=== PATIENT | male | born 1930 | race Caucasian/White ===

== ENCOUNTER → 2017-07-13 | Outpatient (CLI) | payer MEDICARE | END | disposition home or self-care (01) | LOC: PCVCCLINIC 14:02 | PROVIDERS: ATTEND Internal Medicine Cardiovascular Disease | DX: I45.10 Unspecified right bundle-branch block (principal); I12.9 Hypertensive chronic kidney disease with stage 1 through stage 4 chronic kidney disease, or unspecified chronic kidney disease; N18.4 Chronic kidney disease, stage 4 (severe); E78.00 Pure hypercholesterolemia, unspecified; K21.9 Gastro-esophageal reflux disease without esophagitis; G47.33 Obstructive sleep apnea (adult) (pediatric); I77.810 Thoracic aortic ectasia; R94.31 Abnormal electrocardiogram [ECG] [EKG]; J44.9 Chronic obstructive pulmonary disease, unspecified; I73.9 Peripheral vascular disease, unspecified; Z82.49 Family history of ischemic heart disease and other diseases of the circulatory system; Z79.82 Long term (current) use of aspirin; Z87.891 Personal history of nicotine dependence; Z88.2 Allergy status to sulfonamides | CPT/HCPCS: 93005; G0463 ==

== ENCOUNTER → 2017-08-08 | Outpatient (CLI) | payer MEDICARE ==
[~2017-08-08] MED LIST: REGADENOSON 0.4 MG/5 ML DISP.SYRIN. IV ONE
--- NOTE | 2017-08-08 13:28 | PCVCIMAG ---
APPROVED REPORT Exam: Nuclear Stress Test Indication: Abnormal EKG, CAD , Pre-Operative CV evaluation Patient Location: Out-Patient Stress Nurse: Wilma Torres RN, Grecia Wren RN [place] Tech:FELIPE HunterMT Ht: 5 ft 3 in Wt: 229 lbs BSA: 2.05 m2 HR: 83 bpm BP: 136/63 mmHg BMI: 40.5 Rhythm: SR Medical History Medical History: HTN, Hyperlipidemia, PVD, AGE, Former Smoker Medications: Allopurinol, ASA, Advair, Odell, Losartan, Namenda, Protonix, Tamsulosin, Chlorthalidone Allergies: Sulfa Pretest Chest Pain Characteristics: No chest pain Exercise History: Sedentary Physical Disabilities: Back NM EXAM: Myocardial Perfusion REST/STRESS Imaging Protocol: Rest Tc-99m/Stress Tc-99m 1 day Resting Data Rest SPECT myocardial perfusion imaging was performed in supine position 45 minutes following the intravenous injection of 15.7 mCi of Tc-99m Sestamibi. Time of rest injection: 08 Date: 08/08/2017 Administration Route: IV Administration Site: Right Hand Pharmacologic Stress Pharmacologic stress test was performed by injecting Regadenoson 0.4 mg IV push followed by the intravenous injection of 45 mCi of Tc-99m Sestamibi. Time of stress injection: 1010 Date: 08/08/2017 Administration Route: IV Administration Site: Right Hand Gated Stress SPECT was performed 45 minutes after stress injection. The images were gated to evaluate regional wall motion and calculate left ventricular ejection fraction. Study Quality Study: Good Study Data Post stress, the left ventricular ejection was 56%.. SSS: 4 SRS: 5 SDS: 0 TID = 1.04. Perfusion No evidence of stress induced ischemia or prior myocardial infarction. Wall Motion Normal left ventricular size and function with no regional wall motion abnormalities. Nuclear Conclusion No evidence of stress induced ischemia or prior myocardial infarction. Normal left ventricular size and function with no regional wall motion abnormalities. Post stress, the left ventricular ejection was 56%.. No prior study available for comparison. Interpreted by: Mejia Curry MD Electronically Approved: 08/08/2017 13:00:48 Stress Test Details Stress Test: Pharmacologic stress testing performed using 0.4 mg of regadenoson per 5 mL given IV over 10 seconds. Reason for pharmacologic stress test: physical limitation. HR Resting HR: 8 bpmMax Heart Rate (APMHR): 133 bpm Max HR Achieved: 85 bpmTarget HR (85% APMHR): 113 bpm % of APMHR: 63 Recovery HR: 88 bpm BP Resting BP: 136/63 mmHg Max BP: 135/67 mmHg ECG Resting ECG: Sinus Rhythm, RBBB, PACs Stress ECG: Sinus Rhythm, RBBB, PACs ST Change: None, Horizontal ST depression, Upsloping ST depression, Downsloping ST depression, ST Elevation, Nondiagnostic low heart rate, Nondiagnostic resting ST abnormalities, Nondiagnostic V-pacing or LBBB, Normal, Mildly positive, Moderately positive, Strongly positive, Ischemic, Non-ischemic, Eqivocally ischemic, Anterior, Inferior, Lateral Recovery ECG: Sinus Rhythm, RBBB, PACs Clinical Reason for Termination: Completed protocol Stress Symptoms: None Exercise duration: 0 min 55 sec Exercise capacity: 1.0 METs Stress ECG Conclusion ECG: Non-ischemic <Conclusion> ECG: Non-ischemic
== END | disposition home or self-care (01) ==
LOC: PCVCIMAG 07:54
PROVIDERS: ATTEND Internal Medicine Cardiovascular Disease
DX: Z01.810 Encounter for preprocedural cardiovascular examination (principal); I45.10 Unspecified right bundle-branch block; I49.1 Atrial premature depolarization; I25.10 Atherosclerotic heart disease of native coronary artery without angina pectoris; I12.9 Hypertensive chronic kidney disease with stage 1 through stage 4 chronic kidney disease, or unspecified chronic kidney disease; N18.4 Chronic kidney disease, stage 4 (severe); K21.9 Gastro-esophageal reflux disease without esophagitis; R94.31 Abnormal electrocardiogram [ECG] [EKG]; E78.00 Pure hypercholesterolemia, unspecified; I73.9 Peripheral vascular disease, unspecified; K52.9 Noninfective gastroenteritis and colitis, unspecified; Z79.82 Long term (current) use of aspirin; Z79.899 Other long term (current) drug therapy; Z87.891 Personal history of nicotine dependence; Z88.2 Allergy status to sulfonamides; Z82.49 Family history of ischemic heart disease and other diseases of the circulatory system
CPT/HCPCS: 78452; 93017; A9500; J2785

== ENCOUNTER → 2018-01-11 | Outpatient (CLI) | payer MEDICARE | END | disposition home or self-care (01) | LOC: PCVCCLINIC 10:50 | DX: I25.10 Atherosclerotic heart disease of native coronary artery without angina pectoris (principal); I77.810 Thoracic aortic ectasia; I73.9 Peripheral vascular disease, unspecified; G47.33 Obstructive sleep apnea (adult) (pediatric); N18.9 Chronic kidney disease, unspecified; J44.9 Chronic obstructive pulmonary disease, unspecified; R94.31 Abnormal electrocardiogram [ECG] [EKG]; Z87.891 Personal history of nicotine dependence; Z79.82 Long term (current) use of aspirin; Z79.899 Other long term (current) drug therapy | CPT/HCPCS: 80061; 93005; G0463 ==

== ENCOUNTER → 2018-07-26 | Outpatient (CLI) | payer MEDICARE | END | disposition home or self-care (01) | LOC: PCVCCLINIC 13:36 | PROVIDERS: ATTEND Internal Medicine Cardiovascular Disease | DX: I77.810 Thoracic aortic ectasia (principal); R94.31 Abnormal electrocardiogram [ECG] [EKG]; I73.9 Peripheral vascular disease, unspecified; J44.9 Chronic obstructive pulmonary disease, unspecified; G47.33 Obstructive sleep apnea (adult) (pediatric); N18.9 Chronic kidney disease, unspecified; Z79.82 Long term (current) use of aspirin; Z87.891 Personal history of nicotine dependence; Z72.89 Other problems related to lifestyle; Z88.0 Allergy status to penicillin; Z88.8 Allergy status to other drugs, medicaments and biological substances | CPT/HCPCS: 93005; G0463 ==